=== PATIENT | female | born 1970 | race Caucasian/White ===

== ENCOUNTER 2017-12-22 04:48 | Emergency (ER) | payer OTHER ==
[~2017-12-22] VITALS: Ht 165.1 cm; Wt 99.0 kg
[2017-12-22 04:52] VITALS: Ht 165.1 cm; Wt 99.0 kg
[2017-12-22] MEDS ORDERED: SODIUM CHLORIDE 0.9% 1000ML 1,000 ML IV STA (05:09)
[2017-12-22] MEDS ORDERED: ONDANSETRON INJ 2 MG/ML 2 ML VIAL IV STA (05:09)
[2017-12-22] MEDS ORDERED: KETOROLAC TROMETHAMINE 30 MG/ML VIAL IV STA (05:09)
[2017-12-22] MEDS ORDERED: DICYCLOMINE HCL 10 MG/ML 2 ML AMP IM ONE (05:15)
[2017-12-22] MEDS ORDERED: ASCA500 PO (05:30)
[2017-12-22] MEDS ORDERED: CHOL1000 PO (05:30)
[2017-12-22] MEDS ORDERED: OPTIRAY 320 IV PRN (05:30)
[2017-12-22] MEDS ORDERED: ECHI1CAP11 PO (05:30)
[2017-12-22] MEDS ORDERED: B-COTAB18 PO (05:30)
[2017-12-22] MEDS ORDERED: ASHW1CAP PO (05:30)
[2017-12-22] MEDS ORDERED: MULT-506 PO (05:30)
[2017-12-22 05:39] LABS: BASO % 0.3 %; BASO ABS # 0.02 K/uL (0-0.2); EOS % 3.8 %; EOS ABS # 0.24 K/uL (0-0.5); HEMATOCRIT 37.8 % (37-47); HEMOGLOBIN 13.1 g/dL (12.0-16.0); IG# 0.02 K/uL (0.00-0.02); LYMPH % 33.5 %; LYMPH ABS # 2.09 K/uL (1.2-3.4); MEAN CELL VOLUME 85.3 fL (80-100); MEAN CORPUSCULAR HEMOGLOBIN 29.6 pg (25-34); MEAN CORPUSCULAR HGB CONC 34.7 g/dl (32-36); MEAN PLATELET VOLUME 9.7 fL (7.4-10.4); MONO % 11.4 %; MONO ABS # 0.71 K/uL (0.11-0.59); NEUT % 50.7 %; NEUT ABS # 3.16 K/uL (1.4-6.5); PLATELET COUNT 277 K/uL (130-400); RED CELL DISTRIBUTION WIDTH CV 12.8 % (11.5-14.5); RED CELL DISTRIBUTION WIDTH SD 39.9 fL (36.4-46.3); WHITE BLOOD COUNT 6.24 K/uL (4.8-10.8)
[2017-12-22 05:41] LABS: ISTAT CREATININE 0.9 mg/dl (0.6-1.3); ISTAT IONIZED CALCIUM 1.19 mmol/l (1.12-1.32); ISTAT POTASSIUM 3.9 mEq/L (3.3-5.0)
[2017-12-22 05:57] LABS: ALBUMIN 3.8 gm/dl (3.4-5.0); ALT/SGPT 25 U/L (12-78); AST/SGOT 20 U/L (15-37); BLOOD UREA NITROGEN 23 mg/dl (7-18); CALCIUM 8.7 mg/dl (8.5-10.1); CARBON DIOXIDE 24 mmol/L (21-32); CREATININE 0.99 mg/dl (0.60-1.20); GLUCOSE 99 mg/dl (70-99); POTASSIUM 3.9 mmol/L (3.5-5.1); SODIUM 139 mmol/L (136-145)
[2017-12-22 06:07] LABS: ALKALINE PHOSPHATASE 65 U/L (45-117); TOTAL PROTEIN 7.3 gm/dl (6.4-8.2)
--- NOTE | 2017-12-22 07:09 | DIAGNOSTIC IMAGING REPORT ---
ABDOMEN AND PELVIS CT WITH IV CONTRAST CT DOSE: 679.36 mGy.cm HISTORY: Acute right-sided abdominal pain right side pain TECHNIQUE: Multiaxial CT images of the abdomen and pelvis were performed following the use of intravenous contrast. A dose lowering technique was utilized adhering to the principles of ALARA. COMPARISON STUDY: None. FINDINGS: 8 mm thin-walled cyst of the basal left lower lobe. Lung bases are generally clear. No pneumatosis or pneumoperitoneum. Imaged inferior cardiac chambers are unremarkable. Gallbladder is mildly contracted. Liver, spleen, pancreas and adrenal glands are unremarkable. 10 mm low attenuating lesion of the anterior interpolar left kidney suggests renal cyst. Mild cortical scarring of the superior pole left kidney. 5 mm fatty attenuating lesion of the inferior pole left kidney suggests a renal angiomyolipoma. No renal calculi or hydronephrosis. Ureters and bladder are unremarkable. Trace fluid of the endometrial canal. Follicular changes of the ovaries with 2.3 cm cystic lesion on the left and a 4.6 x 2.5 cm cystic structure of the right adnexum. No significant free pelvic fluid. Mild atherosclerosis of the aorta without aneurysm. No bowel obstruction or focal bowel wall thickening. Postoperative changes from prior partial sigmoid colon resection. Mild to moderate stool volume throughout the colon. The appendix is not definitively seen. No secondary signs of acute appendicitis. The terminal ileum appears unremarkable. Soft tissues are within normal limits. Multilevel facet arthrosis. Grade 1 anterolisthesis L4 on L5, likely secondary to underlying facet disease. IMPRESSION: 1. No acute intra-abdominal or intrapelvic abnormality identified. Appendix is not definitively seen, however no secondary signs of acute appendicitis. 2. No bowel obstruction or focal bowel wall thickening. 3. Postoperative changes from prior partial sigmoid colon resection. 4. Follicular changes of the bilateral ovaries with cystic structure of the right adnexum measuring up to 4.6 cm. This could be correlated with pelvic ultrasound if clinically indicated. Electronically signed by: Simon Bermeo M.D. 12/22/2017 7:08 AM Dictated Date/Time: 12/22/2017 7:00 AM
--- NOTE | 2017-12-22 09:11 | DIAGNOSTIC IMAGING REPORT ---
PELVIC COMPLETE NON OB HISTORY: 47 years-old Female rlq pain, cyst on CT, ? torsion/mass acute right lower quadrant abdominal pain with right adnexal cyst seen on comparison CT COMPARISON: None available TECHNIQUE: Multiple real-time sonographic images of the deep pelvic structures were obtained transabdominally and transvaginally assessing grayscale appearance, color and spectral flow FINDINGS: TRANSABDOMINAL: Anteflexed uterus measures 9.0 x 4.7 x 7.3 cm. TRANSVAGINAL: Anteflexed uterus measures 9.6 x 5.5 x 6.8 cm. There are at least 2 intramural fibroids noted, largest of which is within the left uterine fundus measuring 2.4 x 2.0 x 2.8 cm. Mildly complex cysts of the lower uterine segment are noted measuring up to 2.2 cm. Endometrium measures 1.0 cm. 3 mm subendometrial cyst is noted near the uterine fundus. Left ovary is surgically absent. The right ovary measures 5.7 x 3.7 x 4.2 cm and demonstrates arterial inflow and venous outflow. There are 2 complex cysts of the right ovary, largest measuring 3.6 x 2.3 x 3.7 cm and the smaller cyst measuring 2.7 x 2.0 x 2.7 cm. The larger lesion demonstrates low level internal echoes. No significant free pelvic fluid. IMPRESSION: 1. Two complex cysts about the right ovary, largest of which measures up to 3.6 cm and contains homogeneous low-level internal echoes suggesting hemorrhagic cysts or endometriomas. Follow-up imaging in two menstrual cycles or 8 weeks recommended to exclude progressive abnormality. No evidence of associated ovarian torsion. 2. Surgically absent left ovary. 3. Intramural uterine leiomyomas as above. The above report was generated using voice recognition software. It may contain grammatical, syntax or spelling errors. Electronically signed by: Simon Bermeo M.D. 12/22/2017 9:09 AM Dictated Date/Time: 12/22/2017 9:04 AM
[2017-12-22 09:55] VITALS: BP 106/64; PULSE 63; O2SAT 97
--- NOTE | 2017-12-22 17:50 | EMERGENCY ROOM VISIT NOTE ---
ED Visit Note Care was assumed from Wander AVILA due to change of shift. Please see her dictation for full history and physical. Patient remained stable while in the ED. Pelvic ultrasound results showed 2 ovarian cysts. They are complex in nature and measure 2.5 cm and 3.6 cm respectively. They suggest hemorrhagic cyst or endometriomas. No evidence of ovarian torsion. Surgically absent left ovary. Recommendation was made to repeat the pelvic ultrasound in approximately 8 weeks to ensure resolution. This was discussed with the patient. Option of additional pain medication was discussed. She stated that she would only use Tylenol and Motrin and declined any prescription. Follow-up with her [employer] when she returns home for further discussion. Copies of her films were placed on disc for her. She had no further questions at discharge. Current/Historical Medications Scheduled Ascorbic Acid (Vitamin C), 500 MG PO DAILY Ashwagandha (Withana Somnfera) (Ashwagandha), 1 TAB PO DAILY B-Complex Vitamins (Vitamin B Complex), 1 TAB PO DAILY Cholecalciferol (Vitamin D3), 1 TAB PO DAILY Echinacea (Pa Echinacea 500 mg), 1 CAP PO DAILY Multivitamin (Multivitamin), 1 TAB PO DAILY Allergies Coded Allergies: No Known Allergies (Unverified , 12/22/17) Vital Signs Date Time Temp Pulse Resp B/P (MAP) Pulse Ox O2 Delivery O2 Flow Rate FiO2 12/22/17 09:55 63 18 106/64 97 12/22/17 09:25 60 12/22/17 08:49 56 18 109/58 97 Room Air 12/22/17 07:03 71 18 105/61 98 Room Air 12/22/17 06:13 53 16 111/58 96 Room Air 12/22/17 06:05 Room Air 12/22/17 05:54 60 12/22/17 04:52 36.7 65 16 122/84 98 Room Air Laboratory Results 12/22/17 05:30 Red Blood Count 4.43, Mean Corpuscular Volume 85.3, Mean Corpuscular Hemoglobin 29.6, Mean Corpuscular Hemoglobin Concent 34.7, Mean Platelet Volume 9.7, Neutrophils (%) (Auto) 50.7, Lymphocytes (%) (Auto) 33.5, Monocytes (%) (Auto) 11.4, Eosinophils (%) (Auto) 3.8, Basophils (%) (Auto) 0.3, Neutrophils # (Auto ) 3.16, Lymphocytes # (Auto) 2.09, Monocytes # (Auto) 0.71, Eosinophils # (Auto ) 0.24, Basophils # (Auto) 0.02 12/22/17 05:30 Test 12/22/17 05:28 12/22/17 05:30 12/22/17 06:00 Bedside Hemoglobin 12.6 g/dl (12.0-16.0) Bedside Hematocrit 37 % (37-47) Bedside Sodium 140 mEq/L (135-144) Bedside Potassium 3.9 mEq/L (3.3-5.0) Bedside Chloride 104 mEq/L (101-112) Bedside Total CO2 25 mEq/l (24-31) Bedside Blood Urea Nitrogen 23 mg/dl (7-18) Bedside Creatinine 0.9 mg/dl (0.6-1.3) Bedside Glucose (other) 100 mg/dl (70-99) Bedside Ionized Calcium (Derrek) 1.19 mmol/l (1.12-1.32) White Blood Count 6.24 K/uL (4.8-10.8) Red Blood Count 4.43 M/uL (4.2-5.4) Hemoglobin 13.1 g/dL (12.0-16.0) Hematocrit 37.8 % (37-47) Mean Corpuscular Volume 85.3 fL (80-100) Mean Corpuscular Hemoglobin 29.6 pg (25-34) Mean Corpuscular Hemoglobin Concent 34.7 g/dl (32-36) Platelet Count 277 K/uL (130-400) Mean Platelet Volume 9.7 fL (7.4-10.4) Neutrophils (%) (Auto) 50.7 % Lymphocytes (%) (Auto) 33.5 % Monocytes (%) (Auto) 11.4 % Eosinophils (%) (Auto) 3.8 % Basophils (%) (Auto) 0.3 % Neutrophils # (Auto) 3.16 K/uL (1.4-6.5) Lymphocytes # (Auto) 2.09 K/uL (1.2-3.4) Monocytes # (Auto) 0.71 K/uL (0.11-0.59) Eosinophils # (Auto) 0.24 K/uL (0-0.5) Basophils # (Auto) 0.02 K/uL (0-0.2) RDW Standard Deviation 39.9 fL (36.4-46.3) RDW Coefficient of Variation 12.8 % (11.5-14.5) Immature Granulocyte % (Auto) 0.3 % Immature Granulocyte # (Auto) 0.02 K/uL (0.00-0.02) Anion Gap 6.0 mmol/L (3-11) Est Creatinine Clear Calc Drug Dose 82.7 ml/min Estimated GFR () 79.2 Estimated GFR (Non- 68.3 BUN/Creatinine Ratio 23.1 (10-20) Calcium Level 8.7 mg/dl (8.5-10.1) Total Bilirubin 0.3 mg/dl (0.2-1) Direct Bilirubin < 0.1 mg/dl (0-0.2) Aspartate Amino Transf (AST/SGOT) 20 U/L (15-37) Alanine Aminotransferase (ALT/SGPT) 25 U/L (12-78) Alkaline Phosphatase 65 U/L (45-117) Total Protein 7.3 gm/dl (6.4-8.2) Albumin 3.8 gm/dl (3.4-5.0) Thyroid Stimulating Hormone (TSH) 3.780 uIu/ml (0.300-4.500) Human Chorionic Gonadotropin, Qual NEG (NEG) Urine Color YELLOW Urine Appearance CLEAR (CLEAR) Urine pH 5.5 (4.5-7.5) Urine Specific [place] 1.023 (1.000-1.030) Urine Protein NEG (NEG) Urine Glucose (UA) NEG (NEG) Urine Ketones NEG (NEG) Urine Occult Blood 2+ (NEG) Urine Nitrite NEG (NEG) Urine Bilirubin NEG (NEG) Urine Urobilinogen NEG (NEG) Urine Leukocyte Esterase NEG (NEG) Urine WBC (Auto) 1-5 /hpf (0-5) Urine RBC (Auto) 5-10 /hpf (0-4) Urine Hyaline Casts (Auto) 1-5 /lpf (0-5) Urine Epithelial Cells (Auto) >30 /lpf (0-5) Urine Bacteria (Auto) NEG (NEG) Medications Administered Medications (Trade) Dose Ordered Sig/Nakia Route Start Time Stop Time Status Last Admin Dose Admin Sodium Chloride 1,000 ml @ 999 mls/hr Q1H1M STAT IV 5/6/18 05:09 12/22/17 06:09 DC 12/22/17 05:39 999 MLS/HR Dicyclomine HCl (Bentyl Inj) 20 mg NOW ONCE IM 12/22/17 05:15 12/22/17 05:18 DC 12/22/17 05:38 20 MG Ondansetron HCl (Zofran Inj) 4 mg NOW STAT IV 12/22/17 05:09 12/22/17 05:18 DC 12/22/17 05:38 4 MG Ketorolac Tromethamine (Toradol Inj) 10 mg NOW STAT IV 12/22/17 05:09 12/22/17 05:18 DC 12/22/17 05:39 10 MG Departure Information Impression Primary Impression: Ovarian cyst Additional Impression: Lower abdominal pain Dispostion Home / Self-Care Condition GOOD Forms Call Back Authorization, HOME CARE DOCUMENTATION FORM, MOTRIN USE, TYLENOL USE, IMPORTANT VISIT INFORMATION Patient Instructions My [facility] Additional Instructions DO NOT drive, drink alcohol, operate machinery, or perform dangerous activities today. You were given medications in the ER that can affect your ability to safely function or operate a vehicle. Recommend repeat pelvic ultrasound in 6 weeks for resolution of cyst. Rest. Stay well hydrated. No strenuous activity until symptoms resolve. Ibuprofen(Motrin, Advil) may be used for fever or pain. Use 600mg every six hours as needed. Take with food. Avoid using more than 2400mg in a 24 hour period. Do not use 2400mg per day for more than three consecutive days without physician direction. Prolonged inappropriate use can lead to stomach upset or ulcers. (AND/OR) Acetaminophen(Tylenol) may be used for fever or pain. Use 650mg every six hours as needed. Avoid using more than 3000mg in a 24 hour period. Rest and drink plenty of fluids as tolerated. Continue current medications. Return to the ER immediately for severe pain, heavy vaginal bleeding, abdominal pain, vomiting, fevers, chest pains, difficulty breathing, worsening of your condition, or as needed. Follow up with your [employer] in 2-3 days for a recheck of your current condition. Problem Qualifiers
--- NOTE | 2017-12-22 23:42 | EMERGENCY ROOM VISIT NOTE ---
History First contact with patient: 04:57 Chief Complaint: ABDOMINAL PAIN Stated Complaint: R SIDE PAIN History of Present Illness The patient is a 47 year old female who presents to the Emergency Room with complaints of abdominal bloating and right side flank pain since 330 this morning that woke her up out of sleep. Pain comes and goes in severity. Currently 5 out of 10. Nothing makes it better or worse. It does not radiate. Patient denies similar symptoms in the past. Patient denies chest pain, dyspnea, fever, chills, nausea, vomiting, diarrhea, urinary symptoms, vaginal itching or discharge. She states this does not feel like her endometriosis. This does not feel like her ovarian cyst. No history of kidney stones. Review of Systems An 10 system review of systems was completed with positives and pertinent negatives listed in the HPI. Past Medical/Surgical History Endometriosis, left oophorectomy Social History Smoking Status: Never Smoker Smokeless Tobacco Use: No Alcohol Use: occasionally Drug Use: none Marital Status: Housing Status: lives with family Current/Historical Medications Scheduled Ascorbic Acid (Vitamin C), 500 MG PO DAILY Ashwagandha (Withana Somnfera) (Ashwagandha), 1 TAB PO DAILY B-Complex Vitamins (Vitamin B Complex), 1 TAB PO DAILY Cholecalciferol (Vitamin D3), 1 TAB PO DAILY Echinacea (Pa Echinacea 500 mg), 1 CAP PO DAILY Multivitamin (Multivitamin), 1 TAB PO DAILY Physical Exam Vital Signs Date Time Temp Pulse Resp B/P (MAP) Pulse Ox O2 Delivery O2 Flow Rate FiO2 12/22/17 09:55 63 18 106/64 97 12/22/17 09:25 60 12/22/17 08:49 56 18 109/58 97 Room Air 12/22/17 07:03 71 18 105/61 98 Room Air 12/22/17 06:13 53 16 111/58 96 Room Air 12/22/17 06:05 Room Air 12/22/17 05:54 60 12/22/17 04:52 36.7 65 16 122/84 98 Room Air Physical Exam VITALS: Vitals are noted on the nurse's note and reviewed by myself. Vital signs stable. GENERAL: Pleasant female, in no acute distress, nondiaphoretic, well-developed well-nourished. SKIN: Capillary reflex less than 2 seconds. HEENT: Normocephalic. PERRLA. EOMI. Nares patent. Mucous membranes moist. Neck is supple without nuchal rigidity. HEART: Regular rate and rhythm without murmurs gallops or rubs. LUNGS: Clear to auscultation bilaterally without wheezes, rales or rhonchi. No retractions or accessory muscle use. ABDOMEN: Positive bowel sounds x 4. Normal tympanic percussion. Soft, nontender, without masses or organomegaly. Mckeon sign negative. No guarding or rebound tenderness. No CVA tenderness MUSCULOSKELETAL: No gross musculoskeletal defects. NEURO: Patient was alert and oriented to person place and time. Normal sensation to light and sharp touch. No focal neurological deficits. Medical Decision & Procedures Laboratory Results 12/22/17 05:30 Red Blood Count 4.43, Mean Corpuscular Volume 85.3, Mean Corpuscular Hemoglobin 29.6, Mean Corpuscular Hemoglobin Concent 34.7, Mean Platelet Volume 9.7, Neutrophils (%) (Auto) 50.7, Lymphocytes (%) (Auto) 33.5, Monocytes (%) (Auto) 11.4, Eosinophils (%) (Auto) 3.8, Basophils (%) (Auto) 0.3, Neutrophils # (Auto ) 3.16, Lymphocytes # (Auto) 2.09, Monocytes # (Auto) 0.71, Eosinophils # (Auto ) 0.24, Basophils # (Auto) 0.02 12/22/17 05:30 Test 12/22/17 05:28 12/22/17 05:30 12/22/17 06:00 Bedside Hemoglobin 12.6 g/dl (12.0-16.0) Bedside Hematocrit 37 % (37-47) Bedside Sodium 140 mEq/L (135-144) Bedside Potassium 3.9 mEq/L (3.3-5.0) Bedside Chloride 104 mEq/L (101-112) Bedside Total CO2 25 mEq/l (24-31) Bedside Blood Urea Nitrogen 23 mg/dl (7-18) Bedside Creatinine 0.9 mg/dl (0.6-1.3) Bedside Glucose (other) 100 mg/dl (70-99) Bedside Ionized Calcium (Derrek) 1.19 mmol/l (1.12-1.32) White Blood Count 6.24 K/uL (4.8-10.8) Red Blood Count 4.43 M/uL (4.2-5.4) Hemoglobin 13.1 g/dL (12.0-16.0) Hematocrit 37.8 % (37-47) Mean Corpuscular Volume 85.3 fL (80-100) Mean Corpuscular Hemoglobin 29.6 pg (25-34) Mean Corpuscular Hemoglobin Concent 34.7 g/dl (32-36) Platelet Count 277 K/uL (130-400) Mean Platelet Volume 9.7 fL (7.4-10.4) Neutrophils (%) (Auto) 50.7 % Lymphocytes (%) (Auto) 33.5 % Monocytes (%) (Auto) 11.4 % Eosinophils (%) (Auto) 3.8 % Basophils (%) (Auto) 0.3 % Neutrophils # (Auto) 3.16 K/uL (1.4-6.5) Lymphocytes # (Auto) 2.09 K/uL (1.2-3.4) Monocytes # (Auto) 0.71 K/uL (0.11-0.59) Eosinophils # (Auto) 0.24 K/uL (0-0.5) Basophils # (Auto) 0.02 K/uL (0-0.2) RDW Standard Deviation 39.9 fL (36.4-46.3) RDW Coefficient of Variation 12.8 % (11.5-14.5) Immature Granulocyte % (Auto) 0.3 % Immature Granulocyte # (Auto) 0.02 K/uL (0.00-0.02) Anion Gap 6.0 mmol/L (3-11) Est Creatinine Clear Calc Drug Dose 82.7 ml/min Estimated GFR () 79.2 Estimated GFR (Non- 68.3 BUN/Creatinine Ratio 23.1 (10-20) Calcium Level 8.7 mg/dl (8.5-10.1) Total Bilirubin 0.3 mg/dl (0.2-1) Direct Bilirubin < 0.1 mg/dl (0-0.2) Aspartate Amino Transf (AST/SGOT) 20 U/L (15-37) Alanine Aminotransferase (ALT/SGPT) 25 U/L (12-78) Alkaline Phosphatase 65 U/L (45-117) Total Protein 7.3 gm/dl (6.4-8.2) Albumin 3.8 gm/dl (3.4-5.0) Thyroid Stimulating Hormone (TSH) 3.780 uIu/ml (0.300-4.500) Human Chorionic Gonadotropin, Qual NEG (NEG) Urine Color YELLOW Urine Appearance CLEAR (CLEAR) Urine pH 5.5 (4.5-7.5) Urine Specific [place] 1.023 (1.000-1.030) Urine Protein NEG (NEG) Urine Glucose (UA) NEG (NEG) Urine Ketones NEG (NEG) Urine Occult Blood 2+ (NEG) Urine Nitrite NEG (NEG) Urine Bilirubin NEG (NEG) Urine Urobilinogen NEG (NEG) Urine Leukocyte Esterase NEG (NEG) Urine WBC (Auto) 1-5 /hpf (0-5) Urine RBC (Auto) 5-10 /hpf (0-4) Urine Hyaline Casts (Auto) 1-5 /lpf (0-5) Urine Epithelial Cells (Auto) >30 /lpf (0-5) Urine Bacteria (Auto) NEG (NEG) Medications Administered Medications (Trade) Dose Ordered Sig/Nakia Route Start Time Stop Time Status Last Admin Dose Admin Sodium Chloride 1,000 ml @ 999 mls/hr Q1H1M STAT IV 12/22/17 05:09 12/22/17 06:09 DC 12/22/17 05:39 999 MLS/HR Dicyclomine HCl (Bentyl Inj) 20 mg NOW ONCE IM 12/22/17 05:15 12/22/17 05:18 DC 12/22/17 05:38 20 MG Ondansetron HCl (Zofran Inj) 4 mg NOW STAT IV 12/22/17 05:09 12/22/17 05:18 DC 12/22/17 05:38 4 MG Ketorolac Tromethamine (Toradol Inj) 10 mg NOW STAT IV 12/22/17 05:09 12/22/17 05:18 DC 12/22/17 05:39 10 MG ED Course Prior records/ancillary studies reviewed. Triage Nursing notes reviewed. Additional history obtained from family. The patient's history was concerning for abdominal pain. Differential diagnosis: Etiologies such as appendicitis, diverticulitis, PUD, biliary pathology, UTI, pancreatitis, obstruction, mesenteric ischemia, aortic pathology, infections, inflammatory bowel disease, renal colic, as well as others were entertained. Physical examination findings: As above. ER treatment provided: Bentyl, Zofran, IV fluids, Toradol On reassessment the patient felt better. Diagnostics interpreted by me: The labs revealed no worrisome leukocytosis. Stable H&H Negative hCG. Hematuria without signs of infection Imaging studies: CT ABDOMEN & PELVIS With Contrast: No evidence of acute appendicitis. No bowel obstruction or inflammatory change. Prior colon surgery with anastomotic suture material at the level of the sigmoid colon. Liver, gallbladder, spleen, pancreas, and adrenal glands are unremarkable. No hydronephrosis or perinephric stranding. Left kidney cyst. Cystic right adnexal structure measuring 5.2 cm. There is a 3.2 cm cystic structure at the posterior aspect of the uterus. These may represent dilated fallopian tubes versus adnexal cysts. Correlation for active or prior pelvic inflammatory disease is recommended. Heterogeneous uterine myometrium, possibly due to underlying fibroids. Urinary bladder appears normal. No acute osseous findings. Radiologist: Hellen Treviño M.D. Ultrasound pending Case signed out to MARIA LUZ Grady, pending ultrasound and reevaluation in stable condition Exam and history seem consistent with abdominal pain that could be related to her ovarian cyst. Ultrasound is pending at time of signout.. Patient did not have acute abdomen on exam. She is well-appearing. Her pain was under control. She is advised to take medications as directed and to follow-up OB/ [facility] and family care in a few days here in the ER sooner for severe pain, fevers , vomiting, worsening signs or symptoms or as needed. By the evaluation outlined above emergent etiologies such as appendicitis, diverticulitis, PUD, biliary pathology, UTI, pancreatitis, obstruction, mesenteric ischemia, aortic pathology, inflammatory bowel disease, renal colic , as well as others were deemed relatively unlikely. The pt informed about the findings as listed above. All questions were answered and pleased with the treatment. Case reviewed with my attending The chart was completed utilizing [employer] voice recognition software. Grammatical errors, random word insertions, pronoun errors, and incomplete sentences are an occassional consequence of this system due to software limitations, ambient noise, and hardware issues. Any formal questions or concerns about the content, text, or information contained within the body of this dictation should be directly addressed to the physician assistant news director for clarification. Medical Decision as above [place] Drug Monitoring Program Search Results: patient reviewed within database, no issues identified Medication Reconcilliation Current Medication List: was personally reviewed by me Blood Pressure Screening Patient's blood pressure: Normal blood pressure Impression Primary Impression: Right lower quadrant abdominal pain Additional Impression: Right ovarian cyst Departure Information Referrals No Doctor, Assigned (PCP) Patient Instructions My [facility] Problem Qualifiers
== END 2017-12-22 09:55 | disposition home or self-care (01) ==
LOC: C.EDB 04:49
DX: N83.201 Unspecified ovarian cyst, right side (principal); Z90.721 Acquired absence of ovaries, unilateral; Z87.42 Personal history of other diseases of the female genital tract